=== PATIENT | female | born 1960 | race Caucasian/White ===

== ENCOUNTER → 2018-02-10 | Outpatient (CLI) | payer BC ==
[~2018-02-10] MED LIST: DENOSUMAB 60 MG/ML 1 ML SYRINGE SQ NR
[2018-02-10 13:31] VITALS: BP 136/78; PULSE 77; RESP 16; TEMP 98.3
== END | disposition home or self-care (01) ==
LOC: PROCWHC3 13:04
PROVIDERS: ATTEND Internal Medicine
DX: M81.0 Age-related osteoporosis without current pathological fracture (principal)
CPT/HCPCS: 96372; J0897

== ENCOUNTER → 2018-08-18 | Outpatient (CLI) | payer BC ==
[~2018-08-18] MED LIST changes: -DENOSUMAB 60 MG/ML 1 ML SYRINGE SQ NR; +DENOSUMAB 60 MG/ML 1 ML SYRINGE SQ ONE
[2018-08-18 11:40] VITALS: BP 122/65; PULSE 70; RESP 16; TEMP 97.8
== END ==
LOC: PROCWHC3 11:16
PROVIDERS: ATTEND Internal Medicine
DX: M81.0 Age-related osteoporosis without current pathological fracture (principal)
CPT/HCPCS: 96372; J0897

== ENCOUNTER 2018-09-12 15:44 | Emergency (ER) | payer BC ==
[2018-09-12 16:22] VITALS: RESP 18
[2018-09-12] MEDS ORDERED: SULFAMETHOX-TMP 800-160MG 1 EACH TAB PO STA (16:34)
--- NOTE | 2018-09-12 16:42 | ED ---
General Adult HPI - General Chief complaint: Skin/Abscess/Foreign Body Stated complaint: post op infection Time Seen by Provider: 09/12/18 16:00 Source: patient, RN notes reviewed Mode of arrival: ambulatory Limitations: no limitations - History of Present Illness Initial comments: This is a 58-year-old female presents to the emergency department stating that she had a lesion removed on her forehead from Dr. Munoz and stitches removed September 01. Since then pulses been coming out of the incision site and she decided come in and get it evaluated today. Patient has no fevers patient has no increased redness just be pussy drainage. Patient denies any other problems at this time. - Related Data Home Medications Medication Instructions Recorded Confirmed Albuterol Nebulized [Ventolin 2.5 mg INHALATION RT-Q4H PRN 09/16/16 08/18/18 Nebulized] Albuterol Sulfate [Proair Hfa] 1 - 2 puff INHALATION RT-Q6H PRN 09/16/16 Ascorbic Acid [Vitamin C] 500 mg PO DAILY 09/16/16 08/18/18 Buta/APAP/Caf/Cod 04-821-29-30 1 - 2 cap PO BID 09/16/16 08/18/18 [Fioricet w/Cod 25-498-12-30MG] Calcium Carbonate [Calcium] 600 mg PO DAILY 09/16/16 08/18/18 Cholecalciferol [Vitamin D3] 1,000 unit PO DAILY 09/16/16 08/18/18 Cinnamon Bark [Cinnamon] 500 mg PO DAILY 09/16/16 08/18/18 Flaxseed Oil [[place]-3 Flaxseed Oil] 1,000 mg PO DAILY 09/16/16 08/18/18 Garcinia Cambogia 1 tab PO DAILY 09/16/16 08/18/18 HYDROcodone/APAP 10-325MG [[place] 1 tab PO QID 09/16/16 08/18/18 10-325] Methylsulfonylmethane [MSM] 1,000 mg PO DAILY 09/16/16 08/18/18 Multivitamins, Thera [Multivitamin] 1 tab PO DAILY 09/16/16 08/18/18 Vitamin A 8,000 unit PO DAILY 09/16/16 08/18/18 Vitamin B Complex 1 cap PO DAILY 09/16/16 08/18/18 Previous Rx's Medication Instructions Recorded Cyclobenzaprine [Flexeril] 10 mg PO TID #20 tab 09/16/16 Sulfamethox-Tmp 800-160Mg [Bactrim 1 each PO Q12HR #20 tab 09/12/18 DS 800-160 mg] Allergies Allergy/AdvReac Type Severity Reaction Status Date / Time Iodinated Contrast- Oral and Allergy Anaphylaxis Verified 09/12/18 16:15 IV Dye [Iodinated Contrast Media - Oral and] latex Allergy Rash/Hives Verified 09/12/18 16:15 Penicillins Allergy Anaphylaxis Verified 09/12/18 16:15 Review of Systems ROS Statement: Those systems with pertinent positive or pertinent negative responses have been documented in the HPI. ROS Other: All systems not noted in ROS Statement are negative. Past Medical History Past Medical History: Cancer Additional Past Medical History / Comment(s): breast CA basal cell carcinoma, colon polyps, hypoglycemia History of Any Multi-Drug Resistant Organisms: None Reported Past Surgical History: Appendectomy, Breast Surgery, Tubal Ligation Additional Past Surgical History / Comment(s): double mastectomy Past Psychological History: No Psychological Hx Reported Smoking Status: Former smoker Past Alcohol Use History: Occasional Past Drug Use History: Marijuana General Exam - General Exam Comments Initial Comments: GENERAL Patient is well-developed and well-nourished. Patient is in mild distress. EYES Patient's pupils are equal and round. Extraocular motion is intact SKIN Patient has a incision on the right side of her forehead and at the very bottom there is a little pus coming from the incision site. It is tender to palpation. NEURO The patient is alert and oriented 3 PYSCH Patient has normal interpersonal interactions. MUSCULOSKELETAL All 4 extremities have full range of motion. Limitations: no limitations Course Vital Signs 09/12/18 16:15 Temperature 98.2 F Pulse Rate 71 Respiratory 18 Rate Blood Pressure 137/68 O2 Sat by Pulse 98 Oximetry Medical Decision Making - Medical Decision Making She received Bactrim in the emergency department and sent home with a prescription for Bactrim. Disposition Clinical Impression: Post op infection Disposition: HOME SELF-CARE Condition: Good Instructions: Surgical Site Infections (ED) Prescriptions: Sulfamethox-Tmp 800-160Mg [Bactrim DS 800-160 mg] 1 each PO Q12HR #20 tab Is patient prescribed a controlled substance at d/c from ED?: No Referrals: Bruer,Jakob, MD [Primary Care Provider] - 1-2 days Time of Disposition: 16:41
[2018-09-12 17:05] VITALS: BP 132/74; PULSE 67; TEMP 98.3
== END 2018-09-12 17:05 | disposition home or self-care (01) ==
LOC: EC 15:44
DX: T81.40XA Infection following a procedure, unspecified, initial encounter (principal); Z87.891 Personal history of nicotine dependence; Z88.0 Allergy status to penicillin; Z91.040 Latex allergy status; Z91.041 Radiographic dye allergy status; Z79.891 Long term (current) use of opiate analgesic; Z79.899 Other long term (current) drug therapy; Z85.3 Personal history of malignant neoplasm of breast; Z85.828 Personal history of other malignant neoplasm of skin; Z90.10 Acquired absence of unspecified breast and nipple
CPT/HCPCS: 87070; 87205; 99283

== ENCOUNTER → 2019-02-17 | Outpatient (CLI) | payer BC ==
[2019-02-17 11:28] VITALS: BP 149/71; PULSE 71; RESP 16; TEMP 99.2
== END | disposition home or self-care (01) ==
LOC: PROCWHC3 10:54
PROVIDERS: ATTEND Internal Medicine
DX: M81.0 Age-related osteoporosis without current pathological fracture (principal)
CPT/HCPCS: 96372; J0897

== ENCOUNTER → 2019-08-22 | Outpatient (CLI) | payer BC ==
[2019-08-22 12:37] VITALS: BP 107/73; PULSE 89; RESP 18; TEMP 99.2
== END | disposition home or self-care (01) ==
LOC: PROCWHC3 12:16
PROVIDERS: ATTEND Internal Medicine
DX: M81.0 Age-related osteoporosis without current pathological fracture (principal)
CPT/HCPCS: 96372; J0897

== ENCOUNTER 2019-10-19 14:34 | Emergency (ER) | payer BC ==
[2019-10-19] MEDS ORDERED: ACETAMINOPHEN TAB 500 MG TAB PO STA (15:15)
[2019-10-19] MEDS ORDERED: KETOROLAC 60 MG/2 ML VIAL IVP STA (15:16)
[2019-10-19] MEDS ORDERED: OSELTAMIVIR 75 MG CAP PO STA (15:23)
[2019-10-19] MEDS: SODIUM CHLORIDE 0.9% 500 ML 500 ML IV SCH (15:48)
[2019-10-19 15:56] VITALS: RESP 18
[2019-10-19 16:08] LABS: Basophils # (A) 0.1 k/uL (0-0.2); Basophils % (A) 2 %; Eosinophils % (A) 0 %; HCT 43.6 % (34.0-46.0); HGB 14.1 gm/dL (11.4-16.0); Lymphocytes # (A) 0.1 k/uL (1.0-4.8); Lymphocytes % (A) 2 %; MCH 29.9 pg (25.0-35.0); MCHC 32.3 g/dL (31.0-37.0); MCV 92.5 fL (80.0-100.0); Mean Platelet Volume 7.6; Monocytes # (A) 0.4 k/uL (0-1.0); Monocytes % (A) 6 %; Neutrophils # (A) 5.4 k/uL (1.3-7.7); Neutrophils % (A) 88 %; Platelet Count 174 k/uL (150-450); RBC 4.71 m/uL (3.80-5.40); RDW 13.3 % (11.5-15.5); WBC 6.1 k/uL (3.8-10.6)
--- NOTE | 2019-10-19 16:10 | XR ---
EXAMINATION TYPE: XR chest 2V DATE OF EXAM: 10/19/2019 COMPARISON: None HISTORY: 59-year-old female with fever TECHNIQUE: AP and lateral views FINDINGS: Heart normal size. Aortopulmonary vasculature within normal limits. Mild perihilar densities and cent ral interstitial prominence. No arti consolidation or pleural effusion. IMPRESSION: Some subtle changes which may reflect bronchitis. Otherwise, no acute cardiopulmonary process.
--- NOTE | 2019-10-19 16:12 | ED ---
General Adult HPI - General Chief complaint: Fever Stated complaint: Fever Time Seen by Provider: 10/19/19 14:40 Source: patient, RN notes reviewed, old records reviewed Mode of arrival: ambulatory Limitations: no limitations - History of Present Illness Initial comments: This is a 59-year-old female presents emergency department stating that she had a fever and she now has a headache from it. Patient states the fever started 1 day ago. Patient states she is aching all over her body. Patient states the headache does feel like her typical migraine. Patient has achiness and neck but has full range of motion. Patient denies any shortness of breath or chest pain. Patient denies any cough. Patient denies any abdominal pain patient denies any nausea vomiting diarrhea. Patient denies any rashes. Patient states she did get influenza shot.. - Related Data Home Medications Medication Instructions Recorded Confirmed Ascorbic Acid [Vitamin C] 500 mg PO DAILY 09/16/16 08/22/19 Buta/APAP/Caf/Cod 22-223-51-30 1 - 2 cap PO BID 09/16/16 08/22/19 [Fioricet w/Cod 07-143-32-30MG] Calcium Carbonate [Calcium] 600 mg PO DAILY 09/16/16 08/22/19 Cholecalciferol [Vitamin D3] 1,000 unit PO DAILY 09/16/16 08/22/19 Flaxseed Oil [[place]-3 Flaxseed Oil] 1,000 mg PO DAILY 09/16/16 08/22/19 HYDROcodone/APAP 10-325MG [[place] 1 tab PO QID 09/16/16 08/22/19 10-325] Bee Pollen 550 mg PO DAILY 09/12/18 08/22/19 Biotin 5,000 mcg PO DAILY 09/12/18 08/22/19 [place] Honey 1 tab PO DAILY 09/12/18 08/22/19 [place] Jelly 500 mg PO DAILY 09/12/18 08/22/19 Previous Rx's Medication Instructions Recorded Sulfamethox-Tmp 800-160Mg [Bactrim 1 each PO Q12HR #20 tab 09/12/18 DS 800-160 mg] Oseltamivir [Tamiflu] 75 mg PO Q12HR #10 cap 10/19/19 Allergies Allergy/AdvReac Type Severity Reaction Status Date / Time Iodinated Contrast Media Allergy Anaphylaxis Verified 10/19/19 14:41 [Iodinated Contrast Media - Oral and] latex Allergy Rash/Hives Verified 10/19/19 14:41 Penicillins Allergy Anaphylaxis Verified 10/19/19 14:41 Review of Systems ROS Statement: Those systems with pertinent positive or pertinent negative responses have been documented in the HPI. ROS Other: All systems not noted in ROS Statement are negative. Past Medical History Past Medical History: Cancer Additional Past Medical History / Comment(s): breast CA basal cell carcinoma, colon polyps, hypoglycemia,migraines History of Any Multi-Drug Resistant Organisms: None Reported Past Surgical History: Appendectomy, Breast Surgery, Tubal Ligation Additional Past Surgical History / Comment(s): double mastectomy Past Psychological History: No Psychological Hx Reported Smoking Status: Former smoker Past Alcohol Use History: Occasional Past Drug Use History: Marijuana General Exam - General Exam Comments Initial Comments: GENERAL: Patient is well-developed and well-nourished. Patient is nontoxic and well- hydrated and is in mild distress. ENT: Neck is soft and supple. No significant lymphadenopathy is noted. Oropharynx is clear. Moist mucous membranes. Neck has full range of motion without eliciting any pain. EYES: The sclera were anicteric and conjunctiva were pink and moist. Extraocular movements were intact and pupils were equal round and reactive to light. Eyelids were unremarkable. PULMONARY: Unlabored respirations. Good breath sounds bilaterally. No audible rales rhonchi or wheezing was noted. CARDIOVASCULAR: There is a regular rate and rhythm without any murmurs gallops or rubs. ABDOMEN: Soft and nontender with normal bowel sounds. SKIN: Skin is clear with no lesions or rashes and otherwise unremarkable. NEUROLOGIC: Patient is alert and oriented x3. Cranial nerves II through XII are grossly intact. Motor and sensory are also intact. Normal speech, volume and content. Symmetrical smile. MUSCULOSKELETAL: Normal extremities with adequate strength and full range of motion. LYMPHATICS: No significant lymphadenopathy is noted PSYCHIATRIC: Normal psychiatric evaluation. Limitations: no limitations Course Vital Signs 10/19/19 10/19/19 10/19/19 14:36 14:42 15:00 Temperature 98.9 F Pulse Rate 89 Respiratory 20 16 Rate Blood Pressure 142/77 O2 Sat by Pulse 99 Oximetry 10/19/19 10/19/19 15:54 16:27 Temperature 99.6 F Pulse Rate 99 79 Respiratory 18 18 Rate Blood Pressure 125/79 136/74 O2 Sat by Pulse 98 98 Oximetry Medical Decision Making - Medical Decision Making EKG shows normal sinus rhythm at 74 bpm NE interval 160 QRS is 88 QT interval 346 QTC is 384. Patient's EKG shows no ST segment elevation or depression or T- wave abnormality she noted. Chest x-ray shows no acute abnormality. Patient is influenza positive. I s tarted the patient on Tamiflu - Lab Data Result diagrams: 10/19/19 15:45 10/19/19 15:45 Lab Results 10/19/19 10/19/19 10/19/19 Range/Units 14:40 15:45 15:45 WBC 6.1 (3.8-10.6) k/uL RBC 4.71 (3.80-5.40) m/uL Hgb 14.1 (11.4-16.0) gm/dL Hct 43.6 (34.0-46.0) % MCV 92.5 (80.0-100.0) fL MCH 29.9 (25.0-35.0) pg MCHC 32.3 (31.0-37.0) g/dL RDW 13.3 (11.5-15.5) % Plt Count 174 (150-450) k/uL Neutrophils % 88 % Lymphocytes % 2 % Monocytes % 6 % Eosinophils % 0 % Basophils % 2 % Neutrophils # 5.4 (1.3-7.7) k/uL Lymphocytes # 0.1 L (1.0-4.8) k/uL Monocytes # 0.4 (0-1.0) k/uL Eosinophils # 0.0 (0-0.7) k/uL Basophils # 0.1 (0-0.2) k/uL PT (9.0-12.0) sec INR (<1.2) APTT (22.0-30.0) sec Sodium 135 L (137-145) mmol/L Potassium 4.8 (3.5-5.1) mmol/L Chloride 104 (98-107) mmol/L Carbon Dioxide 22 (22-30) mmol/L Anion Gap 9 mmol/L BUN 12 (7-17) mg/dL Creatinine 0.56 (0.52-1.04) mg/dL Est GFR (CKD-EPI)AfAm >90 (>60 ml/min/1.73 sqM) Est GFR (CKD-EPI)NonAf >90 (>60 ml/min/1.73 sqM) Glucose 116 H (74-99) mg/dL Plasma Lactic Acid Lam (0.7-2.0) mmol/L Calcium 9.2 (8.4-10.2) mg/dL Total Bilirubin 0.3 (0.2-1.3) mg/dL AST 46 H (14-36) U/L ALT 45 H (4-34) U/L Alkaline Phosphatase 52 (38-126) U/L Total Protein 7.7 (6.3-8.2) g/dL Albumin 4.8 (3.5-5.0) g/dL Influenza Type A RNA Detected H (Not Detectd) Influenza Type B (PCR) Not Detected (Not Detectd) Group A Strep Rapid (Negative) 10/19/19 10/19/19 10/19/19 Range/Units 15:45 15:45 15:50 WBC (3.8-10.6) k/uL RBC (3.80-5.40) m/uL Hgb (11.4-16.0) gm/dL Hct (34.0-46.0) % MCV (80.0-100.0) fL MCH (25.0-35.0) pg MCHC (31.0-37.0) g/dL RDW (11.5-15.5) % Plt Count (150-450) k/uL Neutrophils % % Lymphocytes % % Monocytes % % Eosinophils % % Basophils % % Neutrophils # (1.3-7.7) k/uL Lymphocytes # (1.0-4.8) k/uL Monocytes # (0-1.0) k/uL Eosinophils # (0-0.7) k/uL Basophils # (0-0.2) k/uL PT 10.0 (9.0-12.0) sec INR 1.0 (<1.2) APTT 23.0 (22.0-30.0) sec Sodium (137-145) mmol/L Potassium (3.5-5.1) mmol/L Chloride (98-107) mmol/L Carbon Dioxide (22-30) mmol/L Anion Gap mmol/L BUN (7-17) mg/dL Creatinine (0.52-1.04) mg/dL Est GFR (CKD-EPI)AfAm (>60 ml/min/1.73 sqM) Est GFR (CKD-EPI)NonAf (>60 ml/min/1.73 sqM) Glucose (74-99) mg/dL Plasma Lactic Acid Lam 1.5 (0.7-2.0) mmol/L Calcium (8.4-10.2) mg/dL Total Bilirubin (0.2-1.3) mg/dL AST (14-36) U/L ALT (4-34) U/L Alkaline Phosphatase (38-126) U/L Total Protein (6.3-8.2) g/dL Albumin (3.5-5.0) g/dL Influenza Type A RNA (Not Detectd) Influenza Type B (PCR) (Not Detectd) Group A Strep Rapid Negative (Negative) Disposition Clinical Impression: Influenza Disposition: HOME SELF-CARE Instructions (If sedation given, give patient instructions): Influenza (ED) Prescriptions: Oseltamivir [Tamiflu] 75 mg PO Q12HR #10 cap Is patient prescribed a controlled substance at d/c from ED?: No Referrals: Jakob Andersen MD [Primary Care Provider] - 1-2 days
[2019-10-19 16:29] LABS: ALT 45 U/L (4-34); AST 46 U/L (14-36); African American GFR (CKD) >90 (>60 ml/min/1.73 sqM); Albumin 4.8 g/dL (3.5-5.0); Alkaline Phosphatase 52 U/L (38-126); Anion Gap 9 mmol/L; Blood Urea Nitrogen 12 mg/dL (7-17); Calcium 9.2 mg/dL (8.4-10.2); Carbon Dioxide 22 mmol/L (22-30); Chloride 104 mmol/L (98-107); Glucose 116 mg/dL (74-99); Non-African American GFR(CKD) >90 (>60 ml/min/1.73 sqM); Potassium 4.8 mmol/L (3.5-5.1); Sodium 135 mmol/L (137-145); Total Bilirubin 0.3 mg/dL (0.2-1.3); Total Protein 7.7 g/dL (6.3-8.2)
[2019-10-19] MEDS ORDERED: HYDROmorphone 0.5 MG/0.5 ML SYRINGE IVP STA (16:59)
[2019-10-19 17:54] VITALS: BP 122/75; PULSE 68; TEMP 99.2
== END 2019-10-19 17:52 | disposition home or self-care (01) ==
LOC: EC 14:34
DX: J11.1 Influenza due to unidentified influenza virus with other respiratory manifestations (principal); G43.909 Migraine, unspecified, not intractable, without status migrainosus; Z79.899 Other long term (current) drug therapy; Z91.041 Radiographic dye allergy status; Z91.040 Latex allergy status; Z88.0 Allergy status to penicillin; Z85.3 Personal history of malignant neoplasm of breast; Z90.13 Acquired absence of bilateral breasts and nipples; Z87.891 Personal history of nicotine dependence
CPT/HCPCS: 36415; 93005; 80053; 83605; 85025; 85610; 85730; 87040; 87081; 87430; 87502; 71046; 99284; 96374; 96375; 96361; J1885; J1170

== ENCOUNTER → 2020-02-22 | Outpatient (CLI) | payer BC ==
[~2020-02-22] MED LIST changes: +DENOSUMAB 60 MG/ML 1 ML SYRINGE SQ NR; -DENOSUMAB 60 MG/ML 1 ML SYRINGE SQ ONE
[2020-02-22 10:02] VITALS: BP 118/69; PULSE 69; RESP 18; TEMP 98.2
== END | disposition home or self-care (01) ==
LOC: PROCWHC3 09:20
PROVIDERS: ATTEND Internal Medicine
DX: M81.0 Age-related osteoporosis without current pathological fracture (principal)
CPT/HCPCS: 96372; J0897

== ENCOUNTER 2020-05-13 17:33 | Emergency (ER) | payer BC ==
[2020-05-13 17:37] VITALS: BP 129/75; PULSE 78; RESP 18; TEMP 98.7
[2020-05-13] MEDS ORDERED: ERYTHROMYCIN 5 MG/GM OPHTH OINT 3.5 GM TUBE LEFT EYE STA (18:31)
--- NOTE | 2020-05-13 19:38 | ED ---
General Adult HPI - General Chief complaint: Eye Problems Stated complaint: eye problems Time Seen by Provider: 05/13/20 17:39 Source: patient, RN notes reviewed, old records reviewed Mode of arrival: ambulatory Limitations: no limitations - History of Present Illness Initial comments: 59-year-old female patient in ED for evaluation of right left lower eyelid swelling last 3 days. Denies any pain to the eye itself. Denies any changes in vision. Denies any other complaints. Systemic: Pt denies fatigue, fever/chills, rash. Pt denies weakness, night s weats, weight loss. Neuro: Pt denies headache, visual disturbances, syncope or pre-syncope. HEENT: Pt denies ocular discharge or irritation, otalgia, rhinorrhea, pharyngitis or notable lymphadenopathy. Cardiopulmonary: Pt denies chest pain, SOB, heart palpitations, dyspnea on exertion. Abdominal/GI: Pt denies abdominal pain, n/v/d. : Pt denies dysuria, burning w/ urination, frequency/urgency. Denies new onset urinary or bowel incontinence. MSK: Pt denies myalgia, loss of strength or function in extremities. Neuro: Pt denies new onset weakness, paresthesias. - Related Data Home Medications Medication Instructions Recorded Confirmed Ascorbic Acid [Vitamin C] 500 mg PO DAILY 09/16/16 08/22/19 Buta/APAP/Caf/Cod 06-678-98-30 1 - 2 cap PO BID 09/16/16 08/22/19 [Fioricet w/Cod 68-035-82-30MG] Calcium Carbonate [Calcium] 600 mg PO DAILY 09/16/16 08/22/19 Cholecalciferol [Vitamin D3] 1,000 unit PO DAILY 09/16/16 08/22/19 HYDROcodone/APAP 10-325MG [[place] 1 tab PO QID 09/16/16 08/22/19 10-325] Biotin 5,000 mcg PO DAILY 09/12/18 08/22/19 [place] Honey 1 tab PO DAILY 09/12/18 08/22/19 Allergies Allergy/AdvReac Type Severity Reaction Status Date / Time Iodinated Contrast Media Allergy Anaphylaxis Verified 05/13/20 17:37 [Iodinated Contrast Media - Oral and] latex Allergy Rash/Hives Verified 05/13/20 17:37 Penicillins Allergy Anaphylaxis Verified 05/13/20 17:37 Review of Systems ROS Statement: Those systems with pertinent positive or pertinent negative responses have been documented in the HPI. ROS Other: All systems not noted in ROS Statement are negative. Past Medical History Past Medical History: Cancer Additional Past Medical History / Comment(s): breast CA basal cell carcinoma, colon polyps, hypoglycemia,migraines History of Any Multi-Drug Resistant Organisms: None Reported Past Surgical History: Appendectomy, Breast Surgery, Tubal Ligation Additional Past Surgical History / Comment(s): double mastectomy Past Psychological History: No Psychological Hx Reported Smoking Status: Current every day smoker Past Alcohol Use History: Occasional Past Drug Use History: Marijuana General Exam - General Exam Comments Initial Comments: Constitutional: NAD, AOX3, Pt has pleasant affect. HEENT: NC/AT, trachea midline, neck supple, no lymphadenopathy. External ears appear normal, without discharge. Mucous membranes moist. Eyes PERRLA, EOM intact. No injection. There is hordeolum noted to right lower eyelid, external. There is no scleral icterus. No pallor noted. Cardiopulmonary: RRR, no murmurs, rubs or gallops, no JVD noted. Lungs CTAB in anterior and posterior kelly. No peripheral edema. Neuro: CN II-XII grossly intact. No nuchal rigidity. No raccon eyes, no killian sign, no hemotympanum. No cervical spinal tenderness. MSK: Full active ROM in upper and lower extremities, 5/5 stregnth. Limitations: no limitations Course Vital Signs 05/13/20 17:34 Temperature 98.7 F Pulse Rate 78 Respiratory 18 Rate Blood Pressure 129/75 O2 Sat by Pulse 99 Oximetry Medical Decision Making - Medical Decision Making 59-year-old female patient in ED for evaluation of left lower eyelid swelling last 3 days. Denies any pain to the eye itself. Denies any changes in vision. Denies any other complaints. His vital signs stable, afebrile. Physical exam displayed hordeolum. Patient initiated on erythromycin. Patient is not a contact lens user. Patient advised on warm compresses eye hygiene. Will be discharged with erythromycin and ophthalmology follow-up tomorrow. Will return to ED if condition worsens. Case discussed with Dr. Bales. Disposition Clinical Impression: Hordeolum Disposition: HOME SELF-CARE Condition: Stable Instructions (If sedation given, give patient instructions): Waqar (ED) Additional Instructions: use warm compresses, avoid eye makeup, keep eye clean. Use erythromycin ointment every 6 hours one half inch for the next 5 days. Follow up with electrical project engineer tomorrow. Return to ED if condition worsens. Is patient prescribed a controlled substance at d/c from ED?: No Referrals: Jakob Andersen MD [Primary Care Provider] - 1-2 days Korey Finch MD [STAFF PHYSICIAN] - 1-2 days
== END 2020-05-13 20:05 | disposition home or self-care (01) ==
LOC: EC 17:33
DX: H00.012 Hordeolum externum right lower eyelid (principal); F17.200 Nicotine dependence, unspecified, uncomplicated; Z88.0 Allergy status to penicillin; Z91.041 Radiographic dye allergy status; Z91.040 Latex allergy status; Z85.3 Personal history of malignant neoplasm of breast; Z90.13 Acquired absence of bilateral breasts and nipples
CPT/HCPCS: 99283

== ENCOUNTER → 2020-08-27 | Outpatient (CLI) | payer BC ==
[2020-08-27 11:09] VITALS: BP 159/75; PULSE 76; RESP 18; TEMP 99.1
== END | disposition home or self-care (01) ==
LOC: PROCWHC3 10:35
PROVIDERS: ATTEND Internal Medicine
DX: M81.0 Age-related osteoporosis without current pathological fracture (principal)
CPT/HCPCS: 96372; J0897

== ENCOUNTER → 2021-03-08 | Outpatient (CLI) | payer BC ==
[2021-03-08 10:54] VITALS: BP 133/79; PULSE 66; RESP 16; TEMP 99
== END ==
LOC: PROCWHC3 10:24
PROVIDERS: ATTEND Family Medicine
DX: M81.0 Age-related osteoporosis without current pathological fracture (principal); Z88.0 Allergy status to penicillin; Z91.041 Radiographic dye allergy status; Z91.040 Latex allergy status; Z87.891 Personal history of nicotine dependence
CPT/HCPCS: 96372; J0897

== ENCOUNTER 2022-03-07 07:00 | Emergency (ER) | payer BC ==
[2022-03-07 07:21] VITALS: BP 112/59; PULSE 75; RESP 16; TEMP 98.2
[2022-03-07] MEDS ORDERED: KETOROLAC 15 MG/ML 1 ML VIAL IM STA (07:32)
--- NOTE | 2022-03-07 07:36 | ED ---
Lower Extremity Injury HPI - General Chief Complaint: Extremity Injury, Lower Stated Complaint: Left foot injury Time Seen by Provider: 03/07/22 07:25 Source: patient, RN notes reviewed, old records reviewed Mode of arrival: ambulatory Limitations: no limitations - History of Present Illness Initial Comments: 61-year-old female alert and oriented 4 presents to the emergency room ambulatory with complaints of left foot pain after dropping the barbecue grill on the top of her foot 2 days ago. Patient states that she's had increased swelling and difficulty ambulating related to the pain. She does have bruising to her left great toe. She states that she did try [place] today with no relief. She denies any other injury. She has a history of osteopenia. MD Complaint: foot injury (left) -: days(s) (2) Type of Injury: blunt Place: street/outdoors Severity scale (1-10): 10 Improves With: nothing Worsens With: weight bearing, movement, palpation Context: direct blow (BBQ dropped on her foot) Associated Symptoms: swelling, able to partially bear weight, ambulatory Treatments Prior to Arrival: bandage, other (norco) - Related Data Home Medications Medication Instructions Recorded Confirmed Ascorbic Acid [Vitamin C] 500 mg PO DAILY 09/16/16 03/08/21 Buta/APAP/Caf/Cod 03-004-11-30 1 - 2 cap PO BID 09/16/16 03/08/21 [Fioricet w/Cod 23-420-11-30MG] Calcium Carbonate [Calcium] 600 mg PO DAILY 09/16/16 03/08/21 HYDROcodone/APAP 10-325MG [[place] 1 tab PO QID 09/16/16 03/08/21 10-325] Biotin [Biotin Disolve] 5,000 mcg PO DAILY 09/12/18 03/08/21 Multivitamins, Thera [Multivitamin 1 tab PO DAILY 08/27/20 03/08/21 (formulary)] Allergies Allergy/AdvReac Type Severity Reaction Status Date / Time Iodinated Contrast Media Allergy Anaphylaxis Verified 03/07/22 07:21 [Iodinated Contrast Media - Oral and] latex Allergy Rash/Hives Verified 03/07/22 07:21 Penicillins Allergy Anaphylaxis Verified 03/07/22 07:21 Review of Systems ROS Statement: Those systems with pertinent positive or pertinent negative responses have been documented in the HPI. ROS Other: All systems not noted in ROS Statement are negative. Past Medical History Past Medical History: Cancer Additional Past Medical History / Comment(s): breast CA basal cell carcinoma, colon polyps, hypoglycemia,migraines. OSTEOPOROSIS. History of Any Multi-Drug Resistant Organisms: None Reported Past Surgical History: Appendectomy, Breast Surgery, Tubal Ligation Additional Past Surgical History / Comment(s): double mastectomy Past Anesthesia/Blood Transfusion Reactions: No Reported Reaction Past Psychological History: No Psychological Hx Reported Smoking Status: Former smoker Past Alcohol Use History: None Reported Past Drug Use History: None Reported General Exam Limitations: no limitations General appearance: alert, in no apparent distress Head exam: Present: atraumatic Neck exam: Absent: meningismus Respiratory exam: Absent: respiratory distress, accessory muscle use Cardiovascular Exam: Present: regular rate Left Lower Leg exam: Absent: tenderness, swelling, erythema Ankle exam: Absent: tenderness, swelling, ecchymosis, erythema Foot/Toe exam: Present: tenderness, swelling, ecchymosis (Great toe). Absent: puncture wound, calcaneal tenderness, tenderness at base of 5th metatarsal Neurovascular tendon exam: Present: no vascular compromise. Absent: abnormal cap refill, extremity cold to touch, pallor, foot drop Gait: observed and limited by pain Neurological exam: Present: alert, oriented X3 Psychiatric exam: Present: normal affect, normal mood Skin exam: Present: warm, dry. 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 There is soft tissue swelling to the dorsal forefoot, no fracture seen. Patient was given an ortho shoe for support and directed to rest, ice and elevate while at home. Take Tylenol and/or Motrin as needed for pain and her [place] as previously prescribed for severe pain. Follow-up with primary care doctor next week. Disposition Clinical Impression: Foot injury, Contusion Disposition: HOME SELF-CARE Condition: Good Instructions (If sedation given, give patient instructions): Foot Contusion (ED) Additional Instructions: Wear ortho shoe for support and comfort. Take Motrin and/or Tylenol as needed for pain. Rest, ice and elevate at home. Follow-up with the primary care doctor next week for continuation of care. Is patient prescribed a controlled substance at d/c from ED?: No Referrals: Heidi Wise MD [Primary Care Provider] - 1-2 days Time of Disposition: 08:44
--- NOTE | 2022-03-07 08:16 | XR ---
EXAMINATION TYPE: XR foot complete LT 3 views DATE OF EXAM: 03/07/2022 Comparison: None Clinical History: 61-year-old female pain near the base of the toes after injury Findings: There is mild to moderate degenerative change first MTP joint with mild hallux valgus and bunion form ation. Mild dorsal forefoot soft tissue swelling noted on the lateral view. No acute fracture, sublux ation, dislocation. Impression: 1. 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 2. There is some dorsal forefoot soft tissue swelling noted on the lateral view. No underlying acute osseous abnormality seen.
== END 2022-03-07 08:57 | disposition home or self-care (01) ==
LOC: EC 07:00
DX: S99.922A Unspecified injury of left foot, initial encounter (principal); Z87.891 Personal history of nicotine dependence; Z91.040 Latex allergy status; Z88.0 Allergy status to penicillin; Z91.041 Radiographic dye allergy status; W01.198A Fall on same level from slipping, tripping and stumbling with subsequent striking against other object, initial encounter
CPT/HCPCS: 73630; 99283; 96372; J1885